=== PATIENT | male | born 1985 | race Native Hawaiian/Other Pacific Islander ===

== ENCOUNTER 2017-07-03 06:46 | Emergency (ER) | payer BC ==
[2017-07-03 07:03] VITALS: RESP 16
[2017-07-03] MEDS ORDERED: Sodium Chloride 0.9% 1,000 ML IV STA (08:02)
--- NOTE | 2017-07-03 08:25 | ED PDOC ---
HPI: Influenza Time Seen by Provider: 07/03/17 07:18 Chief Complaint: Flu-like Symptoms Chief Complaint (Provider): Fever, body pain History Per: Patient Onset/Duration Of Symptoms: Days (x2) Symptoms include: fever, bodyaches Additional complaint(s):: 32 year old male presented to ED complaining of subjective fever and body ache. Patient just came back from trip to [place] and was in jungle where no bug repellent was used. He reports that he had been seen in urgent care yesterday where he had a flu swab taken. Results were negative. Patient is concerned of malaria since subjective fevers are mostly at night. Last night temp was 99. no vomiting or diarreah. PCP: none provided Past Medical History Reviewed: Historical Data, Nursing Documentation, Vital Signs Vital Signs: Last Vital Signs Temp 98.8 F 07/03/17 06:59 Pulse 80 07/03/17 06:59 Resp 16 07/03/17 06:59 BP 110/82 07/03/17 06:59 Pulse Ox 98 07/03/17 06:59 - Medical History PMH: No Chronic Diseases - Surgical History Surgical History: No Surg Hx - Family History Family History: States: Unknown Family Hx - Social History Current smoker - smoking cessation education provided: No Alcohol: None Drugs: Denies - Allergies Allergies/Adverse Reactions: Allergies Allergy/AdvReac Type Severity Reaction Status Date / Time No Known Allergies Allergy Verified 07/03/17 06:59 Review of Systems ROS Statement: Except As Marked, All Systems Reviewed And Found Negative Constitutional: Positive for: Fever Musculoskeletal: Positive for: Other (body ache) Physical Exam - Reviewed Nursing Documentation Reviewed: Yes Vital Signs Reviewed: Yes - Physical Exam Appears: Positive for: Non-toxic, No Acute Distress Head Exam: Positive for: ATRAUMATIC, NORMAL INSPECTION, NORMOCEPHALIC Skin: Positive for: Normal Color, Warm, Dry Eye Exam: Positive for: Normal appearance ENT: Positive for: Normal ENT Inspection Neck: Positive for: Normal, Painless ROM Cardiovascular/Chest: Positive for: Regular Rate, Rhythm. Negative for: Murmur Respiratory: Positive for: Normal Breath Sounds. Negative for: Wheezing, Respiratory Distress Gastrointestinal/Abdominal: Positive for: Normal Exam, Soft. Negative for: Tenderness Back: Positive for: Normal Inspection. Negative for: L CVA Tenderness, R CVA Tenderness, Vertebral Tenderness Extremity: Positive for: Normal ROM Neurologic/Psych: Positive for: Alert, senior sql developer II-XII, Oriented. Negative for: Motor/Sensory Deficits Medical Decision Making Medical Decision Making: Initial Impression: fever, body ache, recent travel. rule out flu, malaria Initial Plan: Head CT CMP Malaria Sodium chloride 1000mL IV Toradol 30mg IV Blood culture Urine culture Influenza A B stat Urinalysis 08:[address] FINDINGS: HEMORRHAGE: No intracranial hemorrhage. BRAIN: Kirby-white matter differentiation is preserved. There is no mass, mass effect or abnormal extra-axial fluid collection. VENTRICLES: The ventricles are normal in size, shape and configuration. CALVARIUM: The skull base and calvarium are normal PARANASAL SINUSES: There is mild polypoid mucosal thickening in the left maxillary sinus. The remaining included paranasal sinuses are predominantly clear. MASTOID AIR CELLS: Predominantly clear. OTHER FINDINGS: None. IMPRESSION: No acute intracranial abnormality. 12:36 Results were discussed with patient. labs show normal wbc, all labs benign.. pt alert and awake in no distress, airway intact. Patient states feels better with normal vitals throughout ER stay and is stable for discharge. approx 16:00 Pt still in the ER but has been discharged. Pt states has mild headache, requesting tylenol. Given to patient. Pt afebrile. Pt will follow up as an outpatient. instructed to return with any worsening or concerning symptoms. Scribe Attestation: Documented by Teto Moore acting as a scribe for Dahiana Tang MD. Provider Scribe Attestation: All medical record entries made by the Scribe were at my direction and personally dictated by me. I have reviewed the chart and agree that the record accurately reflects my personal performance of the history, physical exam, medical decision making, and the department course for this patient. I have also personally directed, reviewed, and agree with the discharge instructions and disposition. - Laboratory Results Result Diagrams: 07/03/17 08:36 07/03/17 08:36 - ECG O2 Sat by Pulse Oximetry: 98 (RA) Pulse Ox Interpretation: Normal Disposition - Clinical Impression Clinical Impression: Viral illness - Patient ED Disposition Is Patient to be Admitted: No Counseled Patient/Family Regarding: Studies Performed, Diagnosis, Need For Followup - Disposition Referrals: [facility] [Outside] [facility] [Outside] Disposition: Routine/Home Disposition Time: 16:00 Condition: IMPROVED Additional Instructions: follow up with your primary doctor in 1-2 days return to the ED with any worsening or concerning symptoms Instructions: Acute Pain, Adult (DC) Forms: [employer] (Greenlandic)
--- NOTE | 2017-07-03 08:43 | CT ---
PROCEDURE: CT HEAD WITHOUT CONTRAST. HISTORY: Headache COMPARISON: None available. TECHNIQUE: Axial computed tomography images were obtained through the head/brain without intravenous contrast. Radiation dose: Total exam DLP = 954.83 mGy-cm. This CT exam was performed using one or more of the following dose reduction techniques: Automated exposure control, adjustment of the mA and/or kV according to patient size, and/or use of iterative reconstruction technique. FINDINGS: HEMORRHAGE: No intracranial hemorrhage. BRAIN: Kirby-white matter differentiation is preserved. There is no mass, mass effect or abnormal extra-axial fluid collection. VENTRICLES: The ventricles are normal in size, shape and configuration. CALVARIUM: The skull base and calvarium are normal PARANASAL SINUSES: There is mild polypoid mucosal thickening in the left maxillary sinus. The remaining included paranasal sinuses are predominantly clear. MASTOID AIR CELLS: Predominantly clear. OTHER FINDINGS: None. IMPRESSION: No acute intracranial abnormality.
[2017-07-03 08:44] LABS: BASO % 0.3 % (0.0-2.0); HEMOGLOBIN 14.3 g/dL (12.0-18.0); LYMPH # 1.4 K/uL (1.0-4.3); LYMPH % 23.8 % (20.0-40.0); MEAN CELL VOLUME 92.2 fl (80.0-94.0); MEAN CORPUSCULAR HEMOGLOBIN 32.1 pg (27.0-31.0); MEAN CORPUSCULAR HGB CONC 34.9 g/dL (33.0-37.0); MEAN PLATELET VOLUME 7.4 fl (7.2-11.7); MONO # 0.7 K/uL (0.0-0.8); MONO % 11.7 % (0.0-10.0); NEUT # 3.8 K/uL (1.8-7.0); NEUT % 64.2 % (50.0-75.0); NRBC % 0.1 % (0.0-0.0); PLATELET COUNT 131 K/uL (130-400); RBC 4.46 Mil/uL (4.40-5.90); RED CELL DISTRIBUTION WIDTH 12.5 % (11.5-14.5); WHITE BLOOD COUNT 5.9 K/uL (4.8-10.8)
[2017-07-03 09:03] LABS: ALB/GLOB RATIO 1.2 (1.0-2.1); ALBUMIN 4.1 g/dL (3.5-5.0); ALT/SGPT 43 U/L (21-72); AST/SGOT 34 U/L (17-59); BLOOD UREA NITROGEN 14 mg/dl (9-20); CALCIUM 9.2 mg/dL (8.4-10.2); GFR AFRICAN-AMERICAN > 60; GFR NON-AFRICAN AMERICAN > 60
[2017-07-03 12:37] LABS: INTRACELLULAR PARASITE NEGATIVE (NEGATIVE)
[2017-07-03 16:23] VITALS: TEMP 98.1
[2017-07-03 16:33] VITALS: BP 122/80; PULSE 56
[2017-07-05 10:22] VITALS: O2SAT 98
== END 2017-07-03 16:32 | disposition home or self-care (01) ==
LOC: H.ER 06:46
DX: B54 Unspecified malaria (principal)
CPT/HCPCS: 70450; 80053; 85025; 87040; 87207; 87804; 96374; 99282; J1885; J7030

== ENCOUNTER 2017-07-04 20:49 | Emergency (ER) | payer BC ==
[2017-07-04 21:13] VITALS: TEMP 97.5
--- NOTE | 2017-07-04 21:40 | ED PDOC ---
HPI: General Adult Time Seen by Provider: 07/04/17 21:18 Chief Complaint (Nursing): Abnormal Labs Chief Complaint (Provider): Exposure to meningitis History Per: Patient History/Exam Limitations: no limitations Onset/Duration Of Symptoms: Days (x2) Have you had recent travel within the past 21 days to any of the following countries: [place], [place], [place] or [place]?: No Severity: None Recently: Seen In ED Additional Complaint(s): 32 year old [place] male presents to the ED after being referred due to exposure to meningitis. Patient recently traveled to [place] with his and they were both seen in the ED yesterday. At the time, patient reported mild symptoms of a fever, body aches and a headache and had a full work up done which was negative. His was worked up further with a spinal tap, diagnosed with meningitis and admitted to this facility. Today, meningitis was diagnosed as meningococcal. Patient has been accompanying upstairs while wearing a mask. As per recommendation of Dr. Lomas, patient was referred to ED for prophylactic dosage of Cipro. Denies headache, photophobia, neck stiffness and rash. PMD: Dr. Kaia Smith Past Medical History Reviewed: Historical Data, Nursing Documentation, Vital Signs Vital Signs: Last Vital Signs Temp 97.5 F L 07/04/17 22:23 Pulse 72 07/04/17 22:23 Resp 18 07/04/17 22:23 BP 126/70 07/04/17 22:23 Pulse Ox 100 07/04/17 22:23 - Medical History PMH: No Chronic Diseases - Surgical History Surgical History: Appendectomy (when he was a child) - Family History Family History: States: Unknown Family Hx - Allergies Allergies/Adverse Reactions: Allergies Allergy/AdvReac Type Severity Reaction Status Date / Time No Known Allergies Allergy Verified 07/03/17 06:59 Review of Systems ROS Statement: Except As Marked, All Systems Reviewed And Found Negative Physical Exam - Reviewed Nursing Documentation Reviewed: Yes Vital Signs Reviewed: Yes - Physical Exam Appears: Positive for: No Acute Distress Head Exam: Positive for: ATRAUMATIC, NORMAL INSPECTION, NORMOCEPHALIC Skin: Positive for: Normal Color, Warm, DRY Eye Exam: Positive for: EOMI, Normal appearance, PERRL Neck: Positive for: Normal, Painless ROM Cardiovascular/Chest: Positive for: Regular Rate, Rhythm. Negative for: Murmur Respiratory: Positive for: Normal Breath Sounds. Negative for: Respiratory Distress Gastrointestinal/Abdominal: Positive for: Normal Exam, Soft Extremity: Positive for: Normal ROM. Negative for: Deformity Neurologic/Psych: Positive for: Alert, Oriented (x 3). Negative for: Motor/ Sensory Deficits - ECG O2 Sat by Pulse Oximetry: 98 (RA) Pulse Ox Interpretation: Normal Medical Decision Making Medical Decision Making: Time: 21:16 Impression: 32 year old male receiving prophylactic dose of Cipro upon exposure to meningococcal meningitis Initial Plan: --Cipro 500 mg PO --Nose cx --Throat cx 21:30 Patient for discharge home. Return precautions were provided to the patient who verbalized understanding Dx Meningitis Exposure Scribe Attestation: Documented by Kirsten Caraballo, acting as a scribe for Marino Agee MD Provider Scribe Attestation: All medical record entries made by the Scribe were at my direction and personally dictated by me. I have reviewed the chart and agree that the record accurately reflects my personal performance of the history, physical exam, medical decision making, and the department course for this patient. I have also personally directed, reviewed, and agree with the discharge instructions and disposition. Disposition - Clinical Impression Clinical Impression: Meningitis contact - Disposition Disposition: Routine/Home Disposition Time: 21:30 Condition: STABLE Forms: [employer] (Belarusian)
[2017-07-04 22:25] VITALS: BP 126/70; PULSE 72; RESP 18
[2017-07-05 06:35] VITALS: O2SAT 98
== END 2017-07-04 22:05 | disposition home or self-care (01) ==
LOC: H.ER 20:49
DX: Z20.811 Contact with and (suspected) exposure to meningococcus (principal)